=== PATIENT | male | born 1985 | race Caucasian/White ===

== ENCOUNTER 2016-09-12 15:54 | Inpatient (IN) | payer MEDICAID ==
[2016-09-12 16:22] LABS: % IMMATURE GRANULYOCYTES 0.2 % (0.0-1.1); ABSOLUTE IMMATURE GRANULOCYTES 0.02 10^3/uL (0.00-0.10); ADD DIFF? NO; ADD MORPH? NO; ADD SCAN? NO; ATYPICAL LYMPHOCYTE FLAG 0 (0-99); FRAGMENT RBC FLAG 0 (0-99); HEMOGLOBIN 16.8 g/dL (13.7-17.5); LEFT SHIFT FLG 0 (0-99); LIPEMIA HEMOLYSIS FLAG 90 (0-99); MEAN CELL HEMOGLOBIN 32.1 pg (27.9-34.1); MEAN CELL HEMOGLOBIN CONCENTR. 36.5 g/dL (32.4-36.7); MEAN PLATELET VOLUME 9.3 fL (8.7-11.7); PLATELET CLUMPS FLAG 0 (0-99); PLATELET COUNT 213 10^3/uL (150-400); RED BLOOD CELL COUNT 5.23 10^6/uL (4.40-6.38); RED CELL DISTRIBUTION WIDTH 11.9 % (11.5-15.2)
--- NOTE | 2016-09-12 16:32 | EDPHY ---
H & P Smoking Status: Current every day smoker Time Seen by Provider: 09/12/16 16:15 HPI/ROS: HPI: 31-year-old male presents to emergency department with chief concern suicidal ideation. Has thoughts of jumping in front of a train or off of a building for 6 weeks. He is afraid he may do this now. Past medical history includes bipolar disorder, cannabis use disorder, with an inpatient hospitalization May 2016 for manic episode. Spent 2 weeks at [facility] and went to [place] where his family lives until he was kicked out. Reports increased paranoid thoughts over the past week with associated I do not know who I a.m.. He denies homicidal ideation, visual or auditory hallucination. Has been taking his medications that include 1500 mg lithium carbonate HS, Zyprexa 5 mg HS, Abilify 10 mg HS. Denies illicit drug use, or alcohol use. No fevers, chills, dizziness, URI symptoms, shortness of breath, chest pain, abdominal discomfort, nausea, vomiting, diarrhea. ROS:10 point review of systems is negative other than as stated in HPI (Margy Pardo) Past Medical/Surgical History: Bipolar disorder, cannabis use disorder, unemployment (Margy aPrdo) Social History: Transient (Margy Pardo) Physical Exam: Vital signs stable, reviewed by me General: Awake, alert, calm, cooperative. No acute distress. Head: Normalocephalic. Atraumatic. EENT: PERRLA. EOMI. No pallor or injection. Anicteric. No nystagmus. No injection. TMs intact bilaterally with normal landmarks. No rhinnorhea, nasal passages clear. Oropharynx without redness, exudates, or lesions. Tonsils 2+ bilaterally, no exudates. Neck: Supple, nontender. No lymphadenopathy. Full range of motion. No meningismus. Respiratory: Breathing unlabored. Breath sounds equal bilaterally and clear to auscultation. No adventitious sounds. CV: Chest nontender, atraumatic. Heart rate regular. No murmur, distal pulses 2+ bilaterally. Brisk cap refill all extremities. GI: Abdomen soft, nontender. Bowel sounds normoactive and positive x4 quadrants. Neuro: Alert. Oriented x 3. Speech clear. Nonfocal cranial nerves throughout. Sensation intact all extremities. Skin: Skin warm, dry, intact. Left wrist with several very superficial cutting attempts that are well approximated. Skin turgor normal. Extremities: Full range of motion in all 4 extremities. Strength 5+ all extremities. (Margy Pardo) Constitutional: Initial Vital Signs Temperature (C) 36.7 C 09/12/16 15:57 Heart Rate 61 09/12/16 15:57 Respiratory Rate 18 09/12/16 15:57 Blood Pressure 141/84 H 09/12/16 15:57 O2 Sat (%) 96 09/12/16 15:57 O2 Delivery Mode Room Air Allergies/Adverse Reactions: bupropion HCl [From Wellbutrin] Allergy (Verified 09/12/16 15:55) Home Medications: Medication Instructions Recorded ARIPiprazole [Abilify 5 mg (*)] 15 mg PO DAILY 09/12/16 [place] Carbonate [[place] 1,500 mg PO HS 09/12/16 Carbonate Tab 300 mg (*)] Olanzapine [Zyprexa] 5 mg PO HS 09/12/16 Medical Decision Making ED Course/Re-evaluation: 31-year-old male presents to ED with suicidal ideation. Placed on M1 hold. Labs and drug tox pending. Psych eval pending. Patient is stable, cooperative , acting appropriately at this time. 1743: Med Clear for psychiatric eval 2200: Vitals stable, patient calm cooperative 0100: Care of this patient past to my colleague Dr. Antwon Tanner (Margy Pardo) 0100 Care assumed by me from PARAMJIT Pardo pending placement. [address] Camarillo pending placement. No issues during my care overnight. 2315 Care assumed by me fromDr. Schafer pendign placement. [address] Lomas pending placement. No issues overnight during my care. (Azael Tanner) I assumed care of the patient at 0700 pending psychiatric placement. I am informed at 10:30 a.m. that the patient has been accepted for inpatient psychiatric hospitalization at [facility] by Dr. Madan Miramontes. We are awaiting confirmation from the patient's insurance authorizing the hospitalization. (Khai Lomas) Differential Diagnosis: Differential includes but is not limited to functional and major depression, situational depression, medication side-effect, anxiety, schizophrenia, bipolar , drug or alcohol related, acute psychosis, metabolic derangement, infection ( Margy Pardo) Other Provider: I assumed care of this patient from Dr. Renard Camarillo at change of shift, 3:00 p.m.. Patient has had no issues during my shift. He received his usual nighttime medications, including lithium, Abilify, Zyprexa, and Ativan. As of 11:00 p.m., no placement has been found. [facility], and [facility], in conjunction with [facility] are all working to find placement. Care will be assumed by Dr. Antwon Tanner at 11:00 p.m.. (Cally Huff) - Data Points Laboratory Results: Laboratory Results 09/12/16 16:00 09/12/16 16:00 Medications Given: Discontinued Medications Aripiprazole (Abilify) 5 mg PO EDNOW ONE Stop: 09/13/16 12:26 Last Admin: 09/13/16 12:43 Dose: Not Given Aripiprazole (Abilify) 15 mg PO EDNOW ONE Stop: 09/13/16 12:45 Last Admin: 09/13/16 14:45 Dose: 15 mg Aripiprazole (Abilify) 15 mg PO ONCE ONE Stop: 09/13/16 22:01 Last Admin: 09/13/16 21:44 Dose: 15 mg [place] Carbonate ([place] Carbonate) 300 mg PO EDNOW ONE Stop: 09/13/16 12:26 Last Admin: 09/13/16 12:47 Dose: 300 mg [place] Carbonate ([place] Carbonate) 1,500 mg PO EDNOW ONE Stop: 09/13/16 21:21 Last Admin: 09/13/16 21:45 Dose: 1,500 mg Lorazepam (Ativan) 1 mg PO EDNOW ONE Stop: 09/13/16 12:27 Last Admin: 09/13/16 12:47 Dose: 1 mg Lorazepam (Ativan) 1 mg PO EDNOW ONE Stop: 09/13/16 21:21 Last Admin: 09/13/16 21:45 Dose: 1 mg Olanzapine (Zyprexa) 5 mg PO ONCE ONE Stop: 09/13/16 12:27 Last Admin: 09/13/16 12:48 Dose: 5 mg Olanzapine (Zyprexa) 5 mg PO ONCE ONE Stop: 09/13/16 21:21 Last Admin: 09/13/16 21:45 Dose: 5 mg Departure - Departure Disposition: [facility] IP Clinical Impression: Suicidal ideation, Severe major depression Condition: Good Referrals: NONE *PRIMARY CARE P,. [Primary Care Provider] - As per Instructions
[2016-09-12 16:44] LABS: ANION GAP 11 mEq/L (8-16); CALCIUM 9.4 mg/dL (8.5-10.4); CARBON DIOXIDE 25 mEq/l (22-31); CHLORIDE 105 mEq/L (97-110); CREATININE 0.8 mg/dL (0.7-1.3); ETHANOL SERUM < 10 mg/dL (0-10); GLOMERULAR FILTRATION RATE > 60; GLUCOSE 103 mg/dL (70-100); POTASSIUM 3.9 mEq/L (3.5-5.2); SODIUM 141 mEq/L (134-144)
[2016-09-13] MEDS ORDERED: ARIPiprazole 5 MG TAB PO ONE ×2 (12:25→22:00)
[2016-09-13] MEDS ORDERED: LITHIUM CARBONATE 300 MG TAB PO ONE ×2 (12:25→21:20)
[2016-09-13] MEDS ORDERED: OLANZapine 2.5 MG TAB PO ONE ×2 (12:26→21:20)
[2016-09-13] MEDS ORDERED: LORazepam 1 MG TAB PO ONE ×2 (12:26→21:20)
[2016-09-13] MEDS ORDERED: ARIPiprazole 10 MG TAB PO ONE ×2 (12:44→21:19)
[2016-09-14] MEDS ORDERED: ARIPiprazole 5 MG TAB PO SCH (09:00)
[2016-09-14] MEDS ORDERED: ARIPiprazole 2 MG TAB PO SCH (09:00)
[2016-09-14] MEDS ORDERED: LITHIUM CARBONATE 300 MG TAB PO SCH ×2 (09:00→21:00)
[2016-09-14] MEDS ORDERED: OLANZapine DISINTEGR 10 MG TAB PO PRN (15:46)
[2016-09-14] MEDS ORDERED: MAGNESIUM HYDROXIDE 30 ML UDCUP PO PRN (15:46)
[2016-09-14] MEDS ORDERED: ACETAMINOPHEN 325 MG TAB PO PRN (15:46)
[2016-09-14] MEDS ORDERED: MAG HYDROX/AL HYDROX/SIMETH 30 ML UDCUP PO PRN (15:46)
[2016-09-14] MEDS: LITHIUM CARBONATE 300 MG TAB PO SCH (20:42)
[2016-09-14] MEDS: OLANZapine 2.5 MG TAB PO SCH (20:43)
[2016-09-14] MEDS ORDERED: ARIPiprazole 10 MG TAB PO ONE (21:00)
[2016-09-14] MEDS ORDERED: OLANZAPINE 5 MG PO SCH (21:00)
[2016-09-14] MEDS ORDERED: OLANZapine 2.5 MG TAB PO SCH (21:00)
[2016-09-15] MEDS: ARIPiprazole 5 MG TAB PO SCH (08:16)
--- NOTE | 2016-09-15 14:57 | BAPA ---
[f rep st] ADMISSION PSYCHIATRIC ASSESSMENT DATE OF SERVICE: 09/15/2016 REASON FOR ADMISSION: Patient is a 31-year-old male with a history of bipolar disorder. Saurabh elliott presented to the emergency department requesting admission due to worsened depression. He states t hat he has been very suicidal recently and reported to [facility] that he was lying down in front of a train and also had a razor hidden in his possessions with a plan to cut himself. He was treated here at [facility], primarily by Dr. Whitney and myself, in May of 2016. He was here from 05/31/2016 to 05/15 and discharged to [facility], specifically to the [facility]. He was under the care of DoctorsLis Abdi and David at that time. He reports that he was there for 2 weeks until he had a court date to challenge his short-term certification. He states that he won th at and was then released from [facility]. His parents then reportedly were upset with him and essentially cut off support. He reports going to [place] after that because "that's where my fri ends and family are." It is known to me however, that his parents at least are in [place], so this is somewhat unclear. He states that he was "1-step above homeless" while he was there. Most recentl y, he was living in some form of a cabin up in the [facility] by himself and stated that he had to leave t here "because I was just too lonely." He returned to [place] on August 14, 2016 and it is somewhat u nclear what he has been doing since that time. He states that he has not reengaged with treatment an d has not taken any medications. He reports using marijuana heavily on a daily basis. He states alvina t his parents are supportive of him to reenter [facility], though collateral information obtai gigi by the childcare administrator indicates that they are not. The patient states that he wants to get deandre atment and wants to be cooperative with all of the recommendations here. PAST HISTORY: Significant for several previous psychiatric admissions, the last was at this facility in May. He also was treated over time since 2012 off and on by [facility] as an outpatie and at [facility]. The patient denies any previous suicide attempts, except recently with a tra in. When he was here in May, he was discharged on lithium alone. The patient states that they l ater added Zyprexa and Abilify, believing that he was more of a schizoaffective diagnosis. Patient r eports wanting to resume his previous medications. ALLERGIES: Bupropion. CURRENT MEDICATIONS: Include Abilify 15 mg daily, lithium 1500 mg at h.s., and Zyprexa 5 mg at h.s. PAST MEDICAL HISTORY: Noncontributory. ADMISSION LABORATORY: CBC is normal. Serum chemistries are normal. Urine drug screen is negative f or all substances, and alcohol is less than detectable. MENTAL STATUS EXAMINATION: Reveals a dishevelled male lying in hospital bed. He is easily awoken and interacts appropriately with the examiner, though continues to lie down throughout the in terview. His affect is somewhat blunted, dysphoric, stable, and appropriate. His mood is described as "depressed." His thought process is linear and goal-directed. His thought content reveals no urla dence of acute psychotic symptoms. He is alert and oriented to person, place, time, and situation, a nd his sensorium is clear. He continues to endorse active thoughts of suicide, though states he is n ot planning to harm himself in the hospital. Patient's intellect appears to be average as evidenced by his fund of knowledge and vocabulary. His insight and judgment appear to be fair. IMPRESSION: 1. Schizoaffective disorder, bipolar type, currently depressed, chronic with acute exacerbation. 2. Homelessness. 3. Family conflict. 4. Lack of support. 5. Chronic illness. ASSESSMENT: Patient is a 31-year-old male with a history of likely schizoaffective disorde r, bipolar type. He presents at this time requesting continuation of his previous medication regimen . He states that he wants to cooperate and that he is willing to take the medications. This is very different than previously when he was against all treatment and arguing to get out of the hospital. At that time, he was manic, however. Patient hopes his family will reengage with him and provide mo re support, so there is certainly possible motivation for secondary gain. PLAN: 1. Admit to [facility] inpatient unit on an M1 hold. 2. Reinstitute his previous medication regimen. 3. Monitor for safety. 4. Engage in individual, group, and milieu psychotherapies. 5. Estimated length of stay is 5-7 days. /[id number]/MODL
--- NOTE | 2016-09-15 19:14 | BCON ---
[f rep st] BEHAVIORAL HEALTH CONSULTATION INTERNAL MEDICINE CONSULTATION. DATE OF CONSULTATION: 09/15/2016 REFERRING PHYSICIAN: Madan Miramontes MD REASON FOR CONSULTATION: Medical clearance for inpatient behavioral health stay. HISTORY OF PRESENT ILLNESS: The patient presented to the [facility] Emergency Department complaining of suicidal ideation with a plan to jump off a building or to jump in front of a train. He was evaluated by the mental health team and admitted for further psychiatric care. He is currently without any acute medical complaints. PAST MEDICAL HISTORY: 1. Mental health issues with diagnoses including depression and possible schizoaffective disorder. 2. History of a tendon laceration of his right ankle. PAST SURGICAL HISTORY: He had surgical repair of the lacerated tendon in his ankle. MEDICATIONS: He was not taking any medications prior to admission. ALLERGIES: There is an allergy listed to bupropion. SOCIAL HISTORY: He is without a home at present. He is a former cigarette smoker. Does not smoke cigarettes anymore. He denies alcohol use. He is a regular heavy marijuana user. 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 FAMILY HISTORY: Noncontributory. REVIEW OF SYSTEMS: He reports weight gain. He denies fevers, chills, cough, dyspnea, chest pain, palpitations, nausea, vomiting, constipation, diarrhea, dysuria or urinary frequency. Other than that, a 10-point review of systems is negative. PHYSICAL EXAM: VITAL SIGNS: Blood pressure is 112/75, heart rate is 81, respiratory rate 13, oxygen saturation is 96% on room air, temperature is 36.8 degrees centigrade. His weight is 99.8 kg, for a body mass index of 24.8, and this represents approximately a 10 kg weight gain since his previous psychiatric hospitalization at [facility] in May of last year. GENERAL: This is a well-nourished, well-developed man, with a long unkempt forrester, otherwise well-groomed, cooperative, and in no acute distress. HEENT: Extraocular movements are intact. Pupils are equal, round, and reactive to light. Mucous membranes are moist. Dentition is in good condition. Airway is uncrowded. NECK: Supple. HEART: Regular rate and rhythm with no murmurs, rubs, or gallops. LUNGS: Clear to auscultation bilaterally. ABDOMEN: Soft, nontender, nondistended with normoactive bowel sounds. EXTREMITIES: There is no cyanosis, clubbing, or edema. Radial and dorsalis pedis pulses are 2+ bilaterally. NEUROLOGIC: He is alert and oriented x3. He has a very flat affect. Cranial nerves 2-12 are grossly intact. There is no focal weakness. Sensation is intact to light touch and gait is within normal limits. LABORATORY STUDIES: From the emergency department, CBC was overall within normal limits. He had a minor increase in absolute monocytes and eosinophils of no clinical significance. Serum chemistry revealed normal renal function and electrolytes. Glucose was slightly high but this was probably non-fasting. Toxicology in the serum was negative for ethyl alcohol and the urine was negative for any substances of abuse. ASSESSMENT/RECOMMENDATIONS: 1. Mental health issues pending further evaluation and management per Psychiatry and the mental health team. 2. Weight gain. He is not obese and he is not hypertensive. He is unlikely to be diabetic. However, might exercise some caution regarding psychiatric medications that could cause further weight gain in terms of his long-term health. 3. History of cannabis use disorder with a negative urine toxicology screen for marijuana. I see no medical contraindications to the patient's continued stay on the inpatient behavioral health unit or to any psychiatric medications or procedures. Thank you very much for including me in the care of this patient. Please do not hesitate to contact me or the hospitalist service should there be need for further medical evaluation. /[id number]/MODL MTDD
[2016-09-15] MEDS: OLANZapine 2.5 MG TAB PO SCH (20:36)
[2016-09-15] MEDS: LITHIUM CARBONATE 300 MG TAB PO SCH (20:36)
[2016-09-16] MEDS: ARIPiprazole 5 MG TAB PO SCH (09:31)
--- NOTE | 2016-09-16 13:39 | SOAPPROG ---
SOAP Progress Note Assessment/Plan: Assessment: Plan: 09/16/16 13:41 Remains depressed. CCM. Subjective: Pt seen, discussed with staff. Reports feeling "pretty down." States, "I'm safe here, and I have food, but I would kill myself if I had to leave with nowhere to go." More present in the milieu, generally interactive with others. Compliant with meds. Objective: Vital Signs Temp Pulse Resp BP Pulse Ox 36.8 C 81 13 112/75 96 09/14/16 14:19 09/14/16 14:19 09/14/16 14:19 09/14/16 14:19 09/14/16 14:19 MSE: Calm, coop. Affect is blunted, dysphoric. Mood is "depressed." TP linear. TC reveals no overt psychosis. SI persists. - Time Spent With Patient Time Spent With Patient: 25" - Pending Discharge Pending Discharge Within 24 Hours: No Pending Discharge Within 48 Hours: No ICD10 Worksheet Patient Problems: Problems Problem Status Diagnosed Severe major depression Acute Suicidal ideation Acute Loretta Acute
[2016-09-16] MEDS: OLANZapine 2.5 MG TAB PO SCH (20:53)
[2016-09-16] MEDS: LITHIUM CARBONATE 300 MG TAB PO SCH (20:53)
[2016-09-16] MEDS: NICOTINE POLACRILEX 2 MG GUM B PRN (20:55)
[2016-09-17] MEDS: ARIPiprazole 5 MG TAB PO SCH (08:36)
--- NOTE | 2016-09-17 10:45 | SOAPPROG ---
SOAP Progress Note Assessment/Plan: Assessment: Pt is a 31 y/o S C male with a hx of Schizoaffective D/O vs Bipolar D/O currently depressed who was a pt at but left. He then almost became homeless and reports his parents will pay for but there is no bed at [facility] for the next 1-2 weeks. Currently pt has multiple c/o about the unit; being bored, being waken up too roughly, not feeling supported by the staff. Talks about leaving but agrees to stay for now. Plan: Pt is VOL contracts for safety on unit-will D/C SP and order AG 09/17/16 10:42 Subjective: "Terrible." Objective: Vital Signs Temp Pulse Resp BP Pulse Ox 36.5 C 60 12 117/71 96 09/17/16 06:00 09/17/16 06:00 09/17/16 06:00 09/17/16 06:00 09/17/16 06:00 Pt is A+O x4 mood-depressed affect-tearful no active S/H I no A/V H slept 8+ hours is eating thoughts-logical speech-wnl no delusions memory-intact no PRAVEENA I/J-fair - Time Spent With Patient Time Spent With Patient: 25' - Pending Discharge Pending Discharge Within 24 Hours: No Pending Discharge Within 48 Hours: No ICD10 Worksheet Patient Problems: Problems Problem Status Diagnosed Severe major depression Acute Suicidal ideation Acute Loretta Acute
[2016-09-17] MEDS: LITHIUM CARBONATE 300 MG TAB PO SCH (19:40)
[2016-09-17] MEDS: LORazepam 0.5 MG TAB PO PRN (20:23)
[2016-09-17] MEDS: OLANZapine 2.5 MG TAB PO SCH (20:26)
[2016-09-18] MEDS: ARIPiprazole 5 MG TAB PO SCH (10:47)
--- NOTE | 2016-09-18 11:02 | SOAPPROG ---
SODINO Progress Note Assessment/Plan: Assessment: Pt is a 31 y/o S C male with a hx of Schizoaffective D/O vs Bipolar D/O currently depressed who was a pt at [facility] but left. He then almost became homeless and reports his parents will pay for [facility] but there is no bed at [facility] for the next 1-2 weeks. Currently pt has multiple c/o about the unit; being bored, being waken up too roughly, not feeling supported by the staff. 09/17/16-Talks about leaving but agrees to stay for now. Plan: Pt is VOL contracts for safety on unit- AG ordered and pt went outside 09/17/16 09/18/16 10:58 Subjective: Pt has multiple c/o-feeling bored, can't use the exercise bike because "it makes my mind race", and does not like the art room because "the piano is too loud," staff is not supportive as they wake him up too rough in am and for vital signs. Objective: Vital Signs Temp Pulse Resp BP Pulse Ox 36.5 C 60 12 117/71 96 09/17/16 06:00 09/17/16 06:00 09/17/16 06:00 09/17/16 06:00 09/17/16 06:00 Pt is A+O x4 mood-depressed affect-appr to mood no active S/H I but feels hopeless no A/V H no delusions slept 8+ hours good appetite no sx psychosis/loretta memory-intact no PRAVEENA I/J-fair - Time Spent With Patient Time Spent With Patient: 20' - Pending Discharge Pending Discharge Within 24 Hours: No Pending Discharge Within 48 Hours: No ICD10 Worksheet Patient Problems: Problems Problem Status Diagnosed Severe major depression Acute Suicidal ideation Acute Loretta Acute
[2016-09-18] MEDS: LITHIUM CARBONATE 300 MG TAB PO SCH (20:08)
[2016-09-18] MEDS: OLANZapine 2.5 MG TAB PO SCH (20:09)
[2016-09-18] MEDS: LORazepam 0.5 MG TAB PO PRN (20:11)
[2016-09-19 06:59] VITALS: BP 117/67; PULSE 65; RESP 14; TEMP 97.4; O2SAT 95
[2016-09-19 10:21] LABS: LITHIUM 0.9 mEq/L (0.6-1.2)
[2016-09-19] MEDS: ARIPiprazole 5 MG TAB PO SCH (10:43)
--- NOTE | 2016-09-19 10:43 | SOAPPROG ---
SOAP Progress Note Assessment/Plan: Assessment: Pt is a 31 y/o S C male with a hx of Schizoaffective D/O vs Bipolar D/O currently depressed who was a pt at but left. He then almost became homeless and reports his parents will pay for but there is no bed at [facility] for the next 1-2 weeks. Currently pt has multiple c/o about the unit; being bored, being waken up too roughly, not feeling supported by the staff. 09/17/16-Talks about leaving but agrees to stay for now. Plan: Pt is VOL contracts for safety on unit- AG ordered and pt went outside 09/17/16 Li level 09/19/16 =0.9 09/19/16 10:41 Subjective: lying in bed reading-watched the Superbowl last night and his mood improved- states he is willing to wait for a bed Objective: Vital Signs Temp Pulse Resp BP Pulse Ox 36.3 C 65 14 117/67 95 09/19/16 06:58 09/19/16 06:58 09/19/16 06:58 09/19/16 06:58 09/19/16 06:58 Pt is A+O x4 mood-irritable at times affect-appr slept 10 hours good appetite thoughts-logical, but negative no S/H I no sx psychosis/loretta no A/V speech-wnl memory-intact I/J-fair - Time Spent With Patient Time Spent With Patient: 20' - Pending Discharge Pending Discharge Within 24 Hours: No Pending Discharge Within 48 Hours: No ICD10 Worksheet Patient Problems: Problems Problem Status Diagnosed Severe major depression Acute Suicidal ideation Acute Loretta Acute
[2016-09-19] MEDS: LITHIUM CARBONATE 300 MG TAB PO SCH (20:53)
[2016-09-19] MEDS: OLANZapine 2.5 MG TAB PO SCH (20:53)
[2016-09-20] MEDS: ARIPiprazole 5 MG TAB PO SCH (08:45)
[2016-09-20] MEDS: LORazepam 0.5 MG TAB PO PRN (11:38)
[2016-09-20] MEDS: NICOTINE POLACRILEX 2 MG GUM B PRN (11:38)
[2016-09-20] MEDS: OLANZapine 2.5 MG TAB PO SCH (20:52)
[2016-09-20] MEDS: LITHIUM CARBONATE 300 MG TAB PO SCH (20:52)
--- NOTE | 2016-09-20 21:19 | SOAPPROG ---
SODINO Progress Note Assessment/Plan: Assessment: Plan: 09/16/16 13:41 Remains depressed. CCM. 09/20/16 21:18 Remains subjectively depressed. Lots of entitlement and possible comorbid Eola II pathology. Clearly does not want to leave prior to being accepted to [facility] despite protestations. CCM. Subjective: Pt seen, discussed with staff, chart reviewed. He reports an uneventful weekend , though remains very depressed. Voices numerous c/o's about the structure, staffing and programming on the unit. Wants access to a computer and Skype. States he thinks, "No one here cares about the patients." Spending almost all his time in bed still. When challenged about this he states, "The groups offer nothing to me and I don't relate to any patients here." No behavioral issues. Looking forward to going to [facility]. Objective: Vital Signs Temp Pulse Resp BP Pulse Ox 36.3 C 65 14 117/67 95 09/19/16 06:58 09/19/16 06:58 09/19/16 06:58 09/19/16 06:58 09/19/16 06:58 - Time Spent With Patient Time Spent With Patient: 25" - Pending Discharge Pending Discharge Within 24 Hours: No ICD10 Worksheet Patient Problems: Problems Problem Status Diagnosed Severe major depression Acute Suicidal ideation Acute Loretta Acute
[2016-09-21] MEDS: ARIPiprazole 5 MG TAB PO SCH (09:25)
--- NOTE | 2016-09-21 16:18 | SOAPPROG ---
SOAP Progress Note Assessment/Plan: Assessment: Plan: 09/16/16 13:41 Remains depressed. CCM. 09/20/16 21:18 Remains subjectively depressed. Lots of entitlement and possible comorbid Bronson II pathology. Clearly does not want to leave prior to being accepted to despite protestations. CCM. 09/21/16 16:18 Remains negativistic, suicidal. Need to clarify d/c plan to at least decrease anticipatory anxiety. CCM. Subjective: Pt seen, discussed with staff. Reports feeling frustrated about delay in going to [facility]. Staff from visited yesterday and he believes they indicated that he could go as soon as today. I have left messages for Dr. Abdi, but have not heard back. Objective: Vital Signs Temp Pulse Resp BP Pulse Ox 36.3 C 65 14 117/67 95 09/19/16 06:58 09/19/16 06:58 09/19/16 06:58 09/19/16 06:58 09/19/16 06:58 MSE: Anxious, pacing. Affect is constricted, stable. Mood is "not very good. " TP linear. TC reveals no psychosis. Ambivalent about SI, stating he "can't be safe with no place to live and no plan." - Time Spent With Patient Time Spent With Patient: 15" - Pending Discharge Pending Discharge Within 24 Hours: No Pending Discharge Within 48 Hours: No ICD10 Worksheet Patient Problems: Problems Problem Status Diagnosed Severe major depression Acute Suicidal ideation Acute Loretta Acute
[2016-09-21] MEDS: LITHIUM CARBONATE 300 MG TAB PO SCH (21:35)
[2016-09-21] MEDS: OLANZapine 2.5 MG TAB PO SCH (21:35)
--- NOTE | 2016-09-22 11:46 | SOAPPROG ---
SOAP Progress Note Assessment/Plan: Assessment: Plan: 09/16/16 13:41 Remains depressed. CCM. 09/20/16 21:18 Remains subjectively depressed. Lots of entitlement and possible comorbid [place] II pathology. Clearly does not want to leave prior to being accepted to [facility] despite protestations. [facility]. 09/21/16 16:18 Remains negativistic, suicidal. Need to clarify d/c plan to at least decrease anticipatory anxiety. CCM. 09/22/16 11:46 Remains depressed. Will CCM. I have a message in to Dr. Abdi re: possible med changes. Subjective: Pt seen, discussed with staff. Reports feeling "pretty depressed today." Spending a lot of time in bed. C/o poor energy and motivation. Questions whether he can reduce the Zyprexa. Scheduled to go to [facility] Monday. Objective: Vital Signs Temp Pulse Resp BP Pulse Ox 36.3 C 65 14 117/67 95 09/19/16 06:58 09/19/16 06:58 09/19/16 06:58 09/19/16 06:58 09/19/16 06:58 MSE: Calm, coop. Affect is blunted, dysphoric, stable. Mood is "depressed." TP linear. TC reveals no overt psychosis. - Time Spent With Patient Time Spent With Patient: 15" - Pending Discharge Pending Discharge Within 24 Hours: No Pending Discharge Within 48 Hours: No ICD10 Worksheet Patient Problems: Problems Problem Status Diagnosed Severe major depression Acute Suicidal ideation Acute [place]oret[place] Acute
[2016-09-22] MEDS: ARIPiprazole 5 MG TAB PO SCH (12:23)
[2016-09-22] MEDS: LITHIUM CARBONATE 300 MG TAB PO SCH (21:04)
[2016-09-22] MEDS: OLANZapine 2.5 MG TAB PO SCH (21:04)
[2016-09-23] MEDS: ARIPiprazole 5 MG TAB PO SCH (09:55)
[2016-09-23] MEDS: NICOTINE POLACRILEX 2 MG GUM B PRN (17:14)
[2016-09-23] MEDS: LITHIUM CARBONATE 300 MG TAB PO SCH (20:40)
[2016-09-23] MEDS: OLANZapine 2.5 MG TAB PO SCH (20:40)
[2016-09-24] MEDS: ARIPiprazole 5 MG TAB PO SCH (09:02)
--- NOTE | 2016-09-24 10:06 | SOAPPROG ---
SOAP Progress Note Assessment/Plan: Assessment: Plan: 09/16/16 13:41 Remains depressed. CCM. 09/20/16 21:18 Remains subjectively depressed. Lots of entitlement and possible comorbid [place] II pathology. Clearly does not want to leave prior to being accepted to [facility] despite protestations. CCM. 09/21/16 16:18 Remains negativistic, suicidal. Need to clarify d/c plan to at least decrease anticipatory anxiety. CCM. 09/22/16 11:46 Remains depressed. Will CCM. I have a message in to Dr. Abdi re: possible med changes. 09/24/16 10:07 No interval change. CCM. Subjective: LATE ENTRY FOR 09/23/16 Pt seen, discussed with staff. Remains isolative, depressed. Compliant with treatments. Objective: Vital Signs Temp Pulse Resp BP Pulse Ox 36.3 C 65 14 117/67 95 09/19/16 06:58 09/19/16 06:58 09/19/16 06:58 09/19/16 06:58 09/19/16 06:58 MSE: Calm, coop. Affect is blunted, dysphoric, stable, approp., congruent. Mood is "pretty depressed." TP linear. TC reveals no psychosis. Conditional SI persists. - Time Spent With Patient Time Spent With Patient: 15" ICD10 Worksheet Patient Problems: Problems Problem Status Diagnosed Severe major depression Acute Suicidal ideation Acute Loretta Acute
--- NOTE | 2016-09-24 19:36 | SOAPPROG ---
SOAP Progress Note Assessment/Plan: Assessment: 31yo w/ hx BMD admitted w/depr and SI Plan: reports ready to return to [facility], planning d/c 09/26 continue meds as on currently 09/24/16 18:15 per staff: slept 9hr, denies SI but c/o "bored reports no med s/e. states appetite good. feels depr "50% improved" and feels no further need to be inpt psych, b/c no longer with SI and ready to move on. Has been helpful to be inpt psych b/c "not alone", "I was isolated and isolating " which incr his depr. denied med s/e but wonders whether getting more easily mm fatigue/pain after exercise on unit is related to [place]. looking fwd to [facility] then getting further help w/housing outpt. calm, cooperative, restricted affect, mood "better", "bored here", speech nml, no delusions, denied si/hi or any ah/vh feels "okay on the inside" with "low depression level" and c/o being here in a "stiffiling environment" Objective: Vital Signs Temp Pulse Resp BP Pulse Ox 36.3 C 65 14 117/67 95 09/19/16 06:58 09/19/16 06:58 09/19/16 06:58 09/19/16 06:58 09/19/16 06:58 - Time Spent With Patient Time Spent With Patient: 25min - Pending Discharge Pending Discharge Within 24 Hours: No Pending Discharge Within 48 Hours: No ICD10 Worksheet Patient Problems: Problems Problem Status Diagnosed Severe major depression Acute Suicidal ideation Acute Loretta Acute
[2016-09-24] MEDS: LITHIUM CARBONATE 300 MG TAB PO SCH (20:17)
[2016-09-24] MEDS: OLANZapine 2.5 MG TAB PO SCH (20:17)
[2016-09-25] MEDS: ARIPiprazole 5 MG TAB PO SCH (08:59)
--- NOTE | 2016-09-25 10:50 | SOAPPROG ---
SOAP Progress Note Assessment/Plan: Assessment: 31yo w/ hx BMD admitted w/depr and SI, now improved with no SI Plan: reports ready to return to [facility], planning d/c 09/26 continue meds lithium 1500, abilify 15mg, zyprexa 5mg hs 09/24/16 18:15 per staff: slept 9hr, denies SI but c/o "bored reports no med s/e. states appetite good. feels depr "50% improved" and feels no further need to be inpt psych, b/c no longer with SI and ready to move on. Has been helpful to be inpt psych b/c "not alone", "I was isolated and isolating " which incr his depr. denied med s/e but wonders whether getting more easily mm fatigue/pain after exercise on unit is related to [place]. looking fwd to [facility] then getting further help w/housing outpt. calm, cooperative, restricted affect, mood "better", "bored here", speech nml, no delusions, denied si/hi or any ah/vh feels "okay on the inside" with "low depression level" and c/o being here in a "stiffiling environment" 09/25/16 19:28 per staff: slept 9hr Dr. Abdi visited yesterday from [facility]. pt looking fwd to d/c admits recently was crying b/c upsetting phone call with parents. not good conversation w F, better w M, "long story" , and didn't want to elaborate. states he tried to apologize to them but long standing issues btwn them. c/o unit, puzzles with missing pieces, beds uncomfortable, TV shouldn't be in main room, couches old and not comfortable...ready for d/c and change environment states he continues with no SI and feels stable for d/c. calm, cooperative, restricted affect, mood "okay", no ah/vh, denied si/hi Objective: Vital Signs Temp Pulse Resp BP Pulse Ox 36.3 C 65 14 117/67 95 09/19/16 06:58 09/19/16 06:58 09/19/16 06:58 09/19/16 06:58 09/19/16 06:58 - Time Spent With Patient Time Spent With Patient: 20min - Pending Discharge Pending Discharge Within 24 Hours: Yes Pending Discharge Within 48 Hours: No Pending Discharge Date: 09/26/16 Pending Discharge Time: 11:00 ICD10 Worksheet Patient Problems: Problems Problem Status Diagnosed Severe major depression Acute Suicidal ideation Acute Loretta Acute
[2016-09-25] MEDS: LITHIUM CARBONATE 300 MG TAB PO SCH (19:54)
[2016-09-25] MEDS: OLANZapine 2.5 MG TAB PO SCH (19:54)
[2016-09-26] MEDS: ARIPiprazole 5 MG TAB PO SCH (09:05)
[2016-09-26 09:55] LABS: LITHIUM 0.8 mEq/L (0.6-1.2)
== END 2016-09-26 09:53 | DRG 880 ==
LOC: BBEH 09-14 13:17
PROVIDERS: ADMIT Psychiatry & Neurology Psychiatry; ATTEND Psychiatry & Neurology Psychiatry
DX: R45.851 Suicidal ideations (principal); F25.0 Schizoaffective disorder, bipolar type; F32.9 Major depressive disorder, single episode, unspecified; F12.90 Cannabis use, unspecified, uncomplicated; Z56.0 Unemployment, unspecified; Z59.0 Homelessness
CPT/HCPCS: 80305; 97110-GP; 97161-GP; G0480